=== PATIENT | female | born 1980 | race Caucasian/White ===

== ENCOUNTER 2017-01-05 15:04 | Emergency (ER) | payer BC ==
[~2017-01-05] VITALS: Ht 167.6 cm; Wt 56.1 kg
[~2017-01-05 15:04] MED LIST: CLIN300C2 PO
[2017-01-05 15:10] VITALS: BP 134/64; PULSE 109; TEMP 37.1; O2SAT 98; Ht 167.6 cm; Wt 56.1 kg
--- NOTE | 2017-01-05 16:00 | DIAGNOSTIC IMAGING REPORT ---
LEFT SHOULDER MIN 2 VIEWS ROUTINE CLINICAL HISTORY: Left shoulder pain following fall. COMPARISON: None FINDINGS: There is fusion of the left glenohumeral joint. There is AC joint arthrosis with subacromial spurring. No acute fracture is identified. Alignment of the left acromioclavicular joint appears anatomic. Several small sclerotic juxtacortical foci projecting of the proximal shaft of the left humerus have a benign imaging appearance. IMPRESSION: 1. No acute fracture. 2. Left glenohumeral joint fusion. 3. Small juxtacortical sclerotic foci within the proximal shaft of the left humerus. These are nonspecific but have benign imaging characteristics and could be correlated with prior imaging studies, if available. Electronically signed by: Gregory Brannon M.D. 01/05/2017 3:59 PM Dictated Date/Time: 01/05/2017 3:56 PM
--- NOTE | 2017-01-05 16:05 | DIAGNOSTIC IMAGING REPORT ---
LEFT HUMERUS MIN 2 VIEWS ROUTINE CLINICAL HISTORY: L shoulder and mid humerus pain COMPARISON: None FINDINGS: No acute fracture of the left humerus is identified. A left glenohumeral joint fusion is noted. Alignment of the left elbow is anatomic and there is no evidence for a left elbow joint effusion. IMPRESSION: 1. No acute fracture of the left humerus. 2. Status post left glenohumeral joint fusion. Electronically signed by: Gregory Brannon M.D. 01/05/2017 4:04 PM Dictated Date/Time: 01/05/2017 4:03 PM
[2017-01-05] MEDS ORDERED: HYDR-5688 PO (16:15)
--- NOTE | 2017-01-05 23:44 | EMERGENCY ROOM VISIT NOTE ---
ED Visit Note First contact with patient: 15:13 Chief Complaint: Left shoulder pain. History of Present Illness: Ms. Renee is a 36 or old white female who ambulates into the ED complaining of posterior left shoulder pain behind humeral head. Historically patient reports she has had a different surgeries on her left shoulder with her last surgery in 2012 which was a glenohumeral fusion. Patient reports yesterday approximately 16 hours ago she was playing with her child and fell and landed on the left shoulder. She reports she immediately had pain over the posterior aspect of the humeral head. Since that time her pain has been constant. She describes it at rest as a throbbing and sharp with movement. She rates her maximum discomfort 9/10. All attempts at moving the shoulder increases her discomfort. She has not identified any alleviating factors except rest. She has been using ibuprofen and has had no relief of her discomfort. She denies any associated symptoms including strike her head at the time of the fall, signs of head injury, cervical or thoracic back pain, elbow pain, forearm pain, wrist pain, arm weakness/numbness/tingling, nausea/ vomiting. Review of Systems: As noted above in history of present illness. 8 body systems were reviewed and found to be negative as noted above. Past Medical History: As previously noted, pneumonia, unspecified ulcer. Current Medications: Patient denies. Allergies to Medications: Trazodone, penicillin and erythromycin. Social History: Patient is currently employed; she feels safe in her home environment; she admits to tobacco and alcohol use. Physical Examination: Vital Signs: Date Time Temp Pulse Resp B/P (MAP) Pulse Ox O2 Delivery O2 Flow Rate FiO2 01/05/17 15:10 37.1 109 18 134/64 98 Room Air GENERAL: 36-year-old female in mild to moderate distress due to pain, nontoxic- appearing, afebrile and hemodynamically stable. NEUROLOGICAL: Awake, alert and oriented to person, place and time. Answering questions appropriately and following commands. Normal gait. Good hand eye coordination. SKIN: Warm, dry and pink. No soft tissue eruptions or trauma noted. Should be noted patient has multiple scars from self cutting all of which all altered appearance and healed. HEENT: Atraumatic and normocephalic. BACK: No tenderness over the bony cervical and thoracic spine. Full range of motion of the cervical spine. LEFT UPPER EXTREMITY: No gross bony deformity. Patient does have multiple surgical scars to the left shoulder as well as significant amount of atrophy of the surrounding musculature. Able to elicit mild tenderness over the posterior head and the superior aspect of the scapula predominately over the supraspinatus muscle. Additionally I palpated tenderness over the mid humerus without bony deformity, crepitus, swelling or ecchymosis. I do not appreciate any bony deformity or crepitus. Because of her previous surgery sure he has limited range of motion and now she'll he has a few degrees of abduction, extension and flexion. With her shoulder stabilize she has full range of motion and muscle strength in flexion and extension of the elbow, pronation and supination of forearm and flexion, extension and radial and ulnar deviation of the wrist. Distal pulses are intact. Capillary refill was brisk. She had decreased sensation over the posterior aspect of her hand which she reports occurred during surgery and is not new or worsened. ED Course: Patient is assessed as noted above. Patient's medication list was reviewed. Patient was offered pain medication and refused. Left Shoulder X-Rays: Was read by myself and the radiologist showing no acute fractures or dislocations. Left glenohumeral joint effusion. Small juxtacortical carotic focus within the proximal shaft of the humerus that is nonspecific. Left Humeral X-Rays: Were read by myself and the radiologist and shows no acute fractures. Patient was placed in a sling. Patient was educated about today's findings and instructed on her treatment plan ; she verbalized understanding and agreement with this plan. Clinical Impression: Shoulder pain. Status post fall. Disposition: Patient discharged home in stable condition; prior to departure she was reassessed and subjectively reported she was feeling better and rated her discomfort 3/10. Plan: Comfort measures were discussed including rest, ice, sling use and a sliding pain medication scale of ibuprofen, acetaminophen and [place]. She was given appropriate precautions with narcotic use tenderness was checked on state database and no red flags were noted. Patient was encouraged to contact her orthopedic surgeon and request follow-up care and treatment. Patient was encouraged return ED for worsening pain, uncontrolled swelling, arm weakness/numbness/tingling or any new/concerning symptoms.
== END 2017-01-05 16:21 | disposition home or self-care (01) ==
LOC: C.EDB 15:05 → C.EDD 16:21
DX: M25.512 Pain in left shoulder (principal); W19.XXXA Unspecified fall, initial encounter; F17.200 Nicotine dependence, unspecified, uncomplicated

== ENCOUNTER 2017-08-18 14:38 | Emergency (ER) | payer SELFPAY ==
[~2017-08-18] VITALS: Ht 167.6 cm; Wt 47.9 kg
[2017-08-18 14:41] VITALS: TEMP 36.7; Ht 167.6 cm; Wt 47.9 kg
[2017-08-18] MEDS ORDERED: ALBUT/IPRATROP 3MG/0.5MG NEB 3 ML VIAL INH STA (16:25)
[2017-08-18] MEDS ORDERED: KETOROLAC TROMETHAMINE 30 MG/ML VIAL IV STA (16:25)
[2017-08-18] MEDS ORDERED: SODIUM CHLORIDE 0.9% 1000ML 1,000 ML IV STA (16:25)
[2017-08-18 16:45] LABS: BASO % 0.3 %; BASO ABS # 0.04 K/uL (0-0.2); EOS % 0.6 %; EOS ABS # 0.07 K/uL (0-0.5); HEMOGLOBIN 13.7 g/dL (12.0-16.0); IG# 0.04 K/uL (0.00-0.02); LYMPH % 25.9 %; LYMPH ABS # 3.09 K/uL (1.2-3.4); MEAN CELL VOLUME 88.5 fL (80-100); MEAN CORPUSCULAR HEMOGLOBIN 30.3 pg (25-34); MEAN CORPUSCULAR HGB CONC 34.3 g/dl (32-36); MEAN PLATELET VOLUME 8.2 fL (7.4-10.4); MONO % 6.5 %; MONO ABS # 0.78 K/uL (0.11-0.59); NEUT % 66.4 %; NEUT ABS # 7.93 K/uL (1.4-6.5); PLATELET COUNT 339 K/uL (130-400); RED CELL DISTRIBUTION WIDTH CV 12.8 % (11.5-14.5); RED CELL DISTRIBUTION WIDTH SD 40.7 fL (36.4-46.3); WHITE BLOOD COUNT 11.95 K/uL (4.8-10.8)
[2017-08-18] MEDS ORDERED: ACET-1693 PO (17:02)
[2017-08-18] MEDS ORDERED: GUAI1TAB20 PO (17:02)
[2017-08-18] MEDS ORDERED: IBUP-103 PO (17:02)
[2017-08-18 17:13] LABS: ALBUMIN 3.6 gm/dl (3.4-5.0); ALT/SGPT 19 U/L (12-78); BLOOD UREA NITROGEN 11 mg/dl (7-18); CALCIUM 8.7 mg/dl (8.5-10.1); CARBON DIOXIDE 27 mmol/L (21-32); CREATININE 0.74 mg/dl (0.60-1.20); GLUCOSE 89 mg/dl (70-99); LIPASE 266 U/L (73-393); POTASSIUM 3.5 mmol/L (3.5-5.1); SODIUM 136 mmol/L (136-145)
[2017-08-18 17:19] LABS: ALKALINE PHOSPHATASE 71 U/L (45-117); AST/SGOT 13 U/L (15-37); CKMB < 0.5 ng/ml (0.5-3.6); TOTAL PROTEIN 7.2 gm/dl (6.4-8.2)
--- NOTE | 2017-08-18 17:19 | DIAGNOSTIC IMAGING REPORT ---
FACIAL BONES-MXILLOFAC WITHOUT CLINICAL HISTORY: 37 years-old Female presenting with elbow to face; unable to breath thru L nare. TECHNIQUE: Multidetector CT of the face was performed without the use of intravenous contrast. IV contrast: None. A dose lowering technique was used consistent with the principles of ALARA (as low as reasonably achievable). COMPARISON: None. CT DOSE (mGy.cm): The estimated cumulative dose is 638.94 mGy.cm. FINDINGS: [facility] [employer] [facility] topogram: Unremarkable. Multiple dental caries noted as marked on the images. The maxillary teeth are absent. No periapical lucencies. Extensive mucosal thickening in the maxillary sinuses, left greater than right. The bony nasal septum is mildly deviated to the right. Discontinuity of the bony nasal septum (series 3 image 281) with bony spurring morphology. The nasal cavity is otherwise patent. The nasopharynx is narrowed by adenoidal lymphoid tissue hypertrophy. Similarly, the oropharynx is narrowed by the tonsillar and adenoidal lymphoid tissue hypertrophy. Orbits normal. Superficial soft tissues of the face normal. Upper cervical spine normal. Parapharyngeal fat planes nondisplaced. No prevertebral edema or retropharyngeal fluid allowing for noncontrast technique. No upper cervical lymphadenopathy. IMPRESSION: 1. Discontinuity of the bony nasal septum with mild deviation to the right results in narrowing of the right nasal cavity. It is unclear if this represents an acute or chronic fracture or developmental variant. 2. Significant adenoidal and tonsillar lymphoid tissue hypertrophy resulting in narrowing of the nasopharynx and oropharynx. This is likely reactive. The nasal cavity is clear. 3. Multiple dental caries. Electronically signed by: Carlos A Gomes M.D. 08/18/2017 5:18 PM Dictated Date/Time: 08/18/2017 5:11 PM
--- NOTE | 2017-08-18 17:30 | DIAGNOSTIC IMAGING REPORT ---
CHEST 2 VIEWS ROUTINE CLINICAL HISTORY: Atypical chest pain, shortness of breath. Bronchitis. COMPARISON STUDY: Conventional radiographic evaluation the left shoulder dated 01/05/2017 FINDINGS: The cardiac and mediastinal contours are normal. There is no focal pulmonary consolidation. There is no failure. An equivocal 6 mm nodule at the left lung base likely represents a vascular summation. There is a left glenohumeral joint fusion. There are no pleural effusions.[ IMPRESSION: 1. 6 mm opacity at the left lung base likely representing a summation 2. No evidence of focal pulmonary consolidation 3. Left glenohumeral joint fusion Electronically signed by: Ryan Marquez M.D. 08/18/2017 5:29 PM Dictated Date/Time: 08/18/2017 5:24 PM
[2017-08-18] MEDS ORDERED: BENZ100C18 PO (17:48)
[2017-08-18] MEDS ORDERED: PRED20TA2 PO (17:48)
[2017-08-18] MEDS ORDERED: VNTHFA/IN INH (17:48)
[2017-08-18 17:56] VITALS: BP 113/64; PULSE 74; O2SAT 99
--- NOTE | 2017-08-19 06:06 | EMERGENCY ROOM VISIT NOTE ---
ED Visit Note First contact with patient: 16:11 Chief Complaint: Chest pain and shortness of breath. History of Present Illness: Ms. Renee is a 37 year-old white female who ambulates into the ED complaining of chest pain and shortness of breath. Historically patient reports history of asthma and bronchitis. Patient reports she has been having ongoing systems for approximately the last 3 -4 weeks. The symptoms have included a nonproductive cough, sinus congestion, fever and shortness of breath. She was seen at a local urgent care center when the started approximately 3 weeks ago and was diagnosed with bronchitis without testing. She was given an antibiotic, steroids and an albuterol inhaler. She reports after about a week she was feeling better but then reports approximately 1.5 weeks ago her symptoms returned and were much more severe. Additionally patient reports that a day or 2 before her return of symptoms she was accidentally elbowed in the face and since that time she feels like she is not able to breathe through the left nostril. Patient currently reports currently she has a constant nonproductive cough. She reports her cough is prominent in the morning after waking. This is associated with anterior chest wall pain and intermittent shortness of breath and fevers. She describes her pain as a burning sensation. She rates her discomfort 5/10. Her pain is nonradiating. Her pain worsens with cough, palpitations and deep inspiration. Her pain is improved when she is not coughing. She has not taken any medication for her symptoms since she finished her steroids and her inhaler. Associated with all her symptoms she reports intermittently she has been having fevers of 100-101F intermittently throughout the last 3 weeks, she has intermittently been feeling short of breath when she is coughing, she intermittently perceives palpitations when she is coughing, sinus congestion with mild nasal drainage. She chills, sweats, skin eruptions, skin color changes, wheezing, hemoptysis, orthopnea, dependent edema, previous clots, claudication, cramping, recent surgery/inactivity/extended travel, tobacco and estrogen use, abdominal pain, nausea, vomiting, back/flank pain. Review of Systems: As noted above in history of present illness. All body systems were reviewed and found to be negative as noted above. Past Medical History: As previously noted and status post unspecified shoulder fusion, appendectomy, ovarian cyst removal and wisdom teeth extraction. Current Medications: Patient denies. Allergies to Medications: Amoxicillin, erythromycin and trazodone. Social History: Patient is currently employed; she feels safe in her home environment; she denies tobacco use and admits to social alcohol use. Physical Examination: Vital Signs: Date Time Temp Pulse Resp B/P (MAP) Pulse Ox O2 Delivery O2 Flow Rate FiO2 08/18/17 17:56 74 18 113/64 99 08/18/17 16:43 84 18 113/51 100 Room Air 08/18/17 14:41 36.7 77 18 128/68 100 Room Air GENERAL: 37-year-old female in mild distress due to pain, nontoxic-appearing, afebrile and hemodynamically stable. NEUROLOGICAL: Awake, alert and oriented to person, place and time. Answering questions appropriately and following commands. Normal gait. Good hand eye coordination. SKIN: Warm, dry and pink. No soft tissue eruptions or trauma noted. HEENT: Atraumatic and normocephalic. No erythema or tenderness over the frontal or maxillary sinuses. Mild tenderness over the left lateral aspect of the nose without bony deformity, bony crepitus, swelling or ecchymosis. There is slight decrease in air movement through the left nostril. The nostril is visually patent and no signs of trauma were noted. PERRLA. Sclera white and conjunctiva pink without drainage. No nasal drainage but audible congestion. Oral cavity moist and pink. Airway patent. Pharynx is nonerythematous or edematous. Speech normal and clear. No lymphadenopathy. Trachea midline. No jugular venous distention. BACK: No tenderness over the bony spine. No nuchal rigidity or meningismus. Full range of motion of the cervical spine. No CVA tenderness. THORAX: Lungs sounds are clear to auscultation but decreased bilaterally with prominence in the right sided lung fisher. Equal bilaterally with symmetrical chest wall. No wheezing, rales or rhonchi. Mild to moderate tenderness over the anterior chest wall without bony deformity, bony crepitus, swelling, ecchymosis or subcutaneous air. No increase in respiratory effort or rate. HEART: Regular rate and rhythm. No gallops, rubs or murmurs are appreciated. No lifts, heaves or thrills. PMI is not displaced. ABDOMEN: Flat, soft and nontender. Positive bowel sounds in all quadrants. No guarding, rigidity or organomegaly. EXTREMITIES: Moves all extremities well on command and with purpose. All distal neurovascular statuses are intact and equal bilaterally. No dependent edema or calf tenderness/cords. ED Course: Patient is assessed as noted above. Patient's medication list was reviewed. Laboratory Testing: Test 08/18/17 16:33 08/18/17 16:39 Range/Units White Blood Count 11.95 4.8-10.8 K/uL Red Blood Count 4.52 4.2-5.4 M/uL Hemoglobin 13.7 12.0-16.0 g/dL Hematocrit 40.0 37-47 % Mean Corpuscular Volume 88.5 80-100 fL Mean Corpuscular Hemoglobin 30.3 25-34 pg Mean Corpuscular Hemoglobin Concent 34.3 32-36 g/dl Platelet Count 339 130-400 K/uL Mean Platelet Volume 8.2 7.4-10.4 fL Neutrophils (%) (Auto) 66.4 % Lymphocytes (%) (Auto) 25.9 % Monocytes (%) (Auto) 6.5 % Eosinophils (%) (Auto) 0.6 % Basophils (%) (Auto) 0.3 % Neutrophils # (Auto) 7.93 1.4-6.5 K/uL Lymphocytes # (Auto) 3.09 1.2-3.4 K/uL Monocytes # (Auto) 0.78 0.11-0.59 K/uL Eosinophils # (Auto) 0.07 0-0.5 K/uL Basophils # (Auto) 0.04 0-0.2 K/uL RDW Standard Deviation 40.7 36.4-46.3 fL RDW Coefficient of Variation 12.8 11.5-14.5 % Immature Granulocyte % (Auto) 0.3 % Immature Granulocyte # (Auto) 0.04 0.00-0.02 K/uL Sodium Level 136 136-145 mmol/L Potassium Level 3.5 3.5-5.1 mmol/L Chloride Level 104 98-107 mmol/L Carbon Dioxide Level 27 21-32 mmol/L Anion Gap 5.0 3-11 mmol/L Blood Urea Nitrogen 11 7-18 mg/dl Creatinine 0.74 0.60-1.20 mg/dl Est Creatinine Clear Calc Drug Dose 78.7 ml/min Estimated GFR () 120.0 Estimated GFR (Non- 103.5 BUN/Creatinine Ratio 14.6 10-20 Random Glucose 89 70-99 mg/dl Calcium Level 8.7 8.5-10.1 mg/dl Total Bilirubin 0.4 0.2-1 mg/dl Direct Bilirubin 0.1 0-0.2 mg/dl Aspartate Amino Transf (AST/SGOT) 13 15-37 U/L Alanine Aminotransferase (ALT/SGPT) 19 12-78 U/L Alkaline Phosphatase 71 45-117 U/L Total Creatine Kinase 49 26-192 U/L Creatine Kinase MB < 0.5 0.5-3.6 ng/ml Creatine Kinase MB Ratio 0-3.0 Total Protein 7.2 6.4-8.2 gm/dl Albumin 3.6 3.4-5.0 gm/dl Lipase 266 73-393 U/L Bedside D-Dimer 233 0-450 ng/mlFEU Bedside Troponin I < 0.030 0-0.045 ng/ml Chest X-Rays: Was read by myself and the radiologist showing no infiltrates, effusions or pneumothorax. Normal heart silhouette and bony anatomy. Radiologist does note a 6 mm opacity in the left lung base likely representing summation and a left glenohumeral joint effusion. Facial CT: Was reviewed by myself and read by the radiologist showing discontinuity of the nasal septum with mild deviation to the right resulting in narrowing of the nasal cavity; radiologist is unclear if this represented an acute or chronic fracture or developmental variant, and adenoidal and tonsillar lymphoid tissue hypertrophy resulting in narrowing of the nasopharynx and oropharynx. EKG: Was read by myself and shows normal sinus rhythm with a ventricular rate of 72 bpm. Normal axis, intervals and complexes. No acute ST changes indicating ischemia, injury or infarction. No previous on records were found for comparison. Patient was hydrated with normal saline and she was given an albuterol/Atrovent nebulizer breathing treatment and 30 mg of Toradol IV for her symptoms. Patient was reassessed multiple times during her stay in the emergency department after her breathing treatment her lungs remain clear to auscultation with improved air movement in all fisher. Patient was educated about today's findings and instructed on her treatment plan ; she verbalized understanding and agreement with this plan. Clinical Impression: Acute bronchitis. Nasal deviation. Decision-Making: Initially my differential diagnosis for her cough I considered pneumonia, pulmonary embolism, pneumothorax, pneumonia, bronchitis and for her nose I considered nasal fracture, facial fracture, sinus fracture, sinusitis and other causes. Disposition: Patient discharged home in stable condition accompanied by female friend; prior to departure she was reassessed and subjectively reported she was pain-free and was feeling much better; she denied any shortness of breath. Plan: Patient was encouraged alternate ibuprofen and acetaminophen every 3 hours as needed for pain or fevers. Patient was prescribed Tessalon Perles 100 mg every 8 hours as needed for cough. Patient was prescribed prednisone 60 mg once a day for 5 days. Patient was prescribed an additional albuterol inhaler encouraged to use 2 puffs of the inhaler with spacer every 6 hours for 5 days and as needed for shortness of breath/wheezing or significant coughing episodes. Patient was encouraged to increase clear fluids. Patient was encouraged to follow-up with her PCP for recheck in 3-4 days. Patient was encouraged return the ED for worsening cough, worsening pain, worsening fevers, coughing up blood, uncontrolled shortness of breath/wheezing or any new/concerning symptoms.
== END 2017-08-18 17:58 | disposition home or self-care (01) ==
LOC: C.EDB 14:40
DX: J20.9 Acute bronchitis, unspecified (principal); J34.2 Deviated nasal septum; R07.89 Other chest pain; R59.0 Localized enlarged lymph nodes; M25.412 Effusion, left shoulder; Z98.1 Arthrodesis status

== ENCOUNTER 2020-07-19 18:37 | Observation (INO) ==
--- NOTE | 2020-07-19 20:25 | Emergency Department Note ---
Impression & Plan Lumbar radiculopathy, Sciatica ED Provider Note INFORMANT: Patient ED PROVIDER(S): Adelso John MD CHIEF COMPLAINT: Back pain PLAN: Disposition: Admitted Condition: Good Outpatient prescription management: none Referral: None MEDICAL DECISION MAKING: Patient presented with worsening back symptoms. Record review indicated a significant nerve root impingement. She unfortunately did not do well with the prednisone and oxycodone despite some help on the day after her first ER visit. She had an unremarkable CBC and chemistry panel for subtle leukocytosis which is likely related to the steroid. Urinalysis was unremarkable. She was given Decadron and Dilaudid. I did consult with Dr. Bains of orthopedic spine. He recommended hospitalist admission for pain control. He will consult on the patient in the morning. He is unsure if she will need injections or operative procedure. Patient was in agreement. Triage Nursing notes reviewed and agree them. Prior medical records reviewed 1. At L4-L5, discogenic degeneration and spondylitic spurring is noted along with a right paracentral/right lateral recess disc protrusion which abuts and posteriorly displaces the right L5 nerve root resulting in moderate right lateral recess narrowing. Mild discogenic degeneration at L3-L4 and L5-S1 as above. No significant central canal or foraminal narrowing. Vital Signs: reviewed and remarkable for no significant abnormalities Differential diagnosis: Musculoskeletal, disc herniation, fracture, metastatic disease, cord compression, discitis, sciatica, cauda equina, infection, aortic disease, renal colic, gastrointestinal, as well as other pathologies. Diagnostics interpreted by me: Cardiac Monitoring: Cardiac monitoring ordered by me: The patient was placed on continuous cardiac monitoring and observed. It revealed a normal sinus rhythm at 80 beats per minute without ectopy or evidence of dysrhythmia. Imaging studies: Deferred Consultation(s): Orthopedic spine, Dr. Bains Hospitalist service, Dr. Schofield HPI: The patient is a 39 year old female who presents to the Emergency Room with complaints of low back pain. This started a few years ago but worsened over the last few weeks and is now severe. Was here 5 days ago for similar issues and had an MRI which revealed nerve root compression. The patient also notes the following associated symptoms, difficulty walking, hip pains, numbness, weakness,The patient has been prescribed prednisone, oxycodone for relieving factors. Current pain is rated as 8/10. Pt denies LOC, headache, fevers, chills, diaphoresis, visual changes, neck pain, chest pain, breathing difficulties, nausea, vomiting, abdominal pain, melena, hematochezia, urinary symptoms, lymphadenopathy, rash, or other complaints. ROS: See above HPI for pertinent positives & negatives. A total of 10 systems reviewed and were otherwise negative. PAST MEDICAL HISTORY:See Below , DDD PAST SURGICAL HISTORY:See Below FAMILY HISTORY:See Below SOCIAL HISTORY:See Below, prior ETOH HOME MEDICATIONS:See Below ALLERGIES:See Below VITALS:See Below PHYSICAL EXAMINATION: GENERAL: Awake, alert, uncomfortable-appearing, in no distress HENT: Normocephalic, atraumatic. Oropharynx unremarkable. EYES: Normal conjunctiva. Sclera non-icteric. NECK: Inspection normal. Non-tender. Supple. No nuchal rigidity. FROM. No masses. RESPIRATORY: Clear to auscultation. No wheezes. No rales. Normal respiratory e ffort. CARDIAC: Normal rate. Normal rhythm. No murmurs. No rubs. Extremities warm and well perfused. Pulses equal. No JVD. GI: Soft, non-distended. No tenderness to palpation. No rebound or guarding. No masses. RECTAL: Deferred. MUSCULOSKELETAL: Atraumatic. Chest examination reveals no tenderness. The back is symmetrical on inspection without obvious abnormality. Lumbar TTP. There is no CVA tenderness to palpation. No joint edema. LOWER EXTREMITIES: Calves are equal size bilaterally and non-tender. No edema. No discoloration. NEURO: Normal sensorium. No saddle anesthesia. Tingling sensation noted to the sole of the left foot near the first MTP joint. Positive right straight leg raise. SKIN: No rash or jaundice noted. Adelso John MD Past Med/Surg History Medical History No significant active problems Social History Smoking Status: Never smoker Preferred Language: Danish Communication Ability: Effective Envelope Machine Adjuster Required: No Beliefs That Will Affect Care: None Current Living Situation: Significant Other Other Information That Helps Us Care for You: No Feels Safe at Home: Yes Safety Concerns: Feels Safe At This Time Assistive Devices: None Assistive Devices Comment: Walker; only with current situation Allergies Allergies Allergy/AdvReac Type Severity Reaction Status Date / Time trazodone Allergy Intermediate Hypotension Verified 07/19/20 21:31 amoxicillin Allergy Unknown Unknown Verified 07/19/20 21:31 Penicillins Allergy Unknown Nausea Verified 07/19/20 21:31 ERYTHROMYCIN Allergy Unknown Unknown Uncoded 07/19/20 21:31 Home Meds Home Medications Medication Instructions Recorded Confirmed norgestimate-ethinyl estradiol 1 tab PO DAILY 07/19/20 07/19/20 [Tri-Sprintec (28)] oxycodone 5 mg PO Q6H PRN 07/19/20 07/19/20 prednisone 10 mg PO DIRECTED 07/19/20 07/19/20 Results & Data (ED) Vital Signs Vital Signs - 24 hr 07/19/20 19:04 07/19/20 20:17 07/19/20 21:00 Temperature 36.7 C Temperature Source Temporal Artery Scan Pulse Rate 86 Pulse Rate [Right Finger] 73 75 Respiratory Rate 16 22 15 Respiratory Effort / Characteristics Non-Labored Spontaneous Respiratory Depth Normal Normal Respiratory Pattern Regular Blood Pressure 129/74 Blood Pressure [Right Arm] 114/63 128/74 Blood Pressure Mean 92 Blood Pressure Mean [Right Arm] 80 92 Blood Pressure Position Sitting Blood Pressure Position [Right Arm] Lying Pulse Oximetry 100 100 96 Oxygen Delivery Method Room Air Room Air Room Air Sepsis Recent Fever Within 48 Hours No Sepsis New/Unexplained Change in Mental Status No Sepsis Action Taken by Nursing No Action Required 07/19/20 21:50 Temperature Temperature Source Pulse Rate Pulse Rate [Right Finger] 66 Respiratory Rate 16 Respiratory Effort / Characteristics Respiratory Depth Respiratory Pattern Blood Pressure Blood Pressure [Right Arm] Blood Pressure Mean Blood Pressure Mean [Right Arm] Blood Pressure Position Blood Pressure Position [Right Arm] Pulse Oximetry 100 Oxygen Delivery Method Room Air Sepsis Recent Fever Within 48 Hours Sepsis New/Unexplained Change in Mental Status Sepsis Action Taken by Nursing Laboratory Data Result diagrams: 07/19/20 20:41 07/19/20 20:41 Lab Results 07/19/20 07/19/20 07/19/20 Range/Units 20:24 20:41 20:41 WBC 11.78 H (4.8-10.8) K/uL RBC 4.72 (4.2-5.4) M/uL Hgb 14.9 (12.0-16.0) g/dL Hct 40.9 (37-47) % MCV 86.7 (80-100) fL MCH 31.6 (25-34) pg MCHC 36.4 H (32-36) g/dL RDW Std Deviation 38.5 (36.4-46.3) fL RDW Coeff of Koki 12.1 (11.5-14.5) % Plt Count 419 H (130-400) K/uL MPV 8.7 (7.4-10.4) fL Immature Gran % (Auto) 0.3 % Neut % (Auto) 75.4 % Lymph % (Auto) 18.8 % [place] % (Auto) 5.3 % Eos % (Auto) 0.0 % Baso % (Auto) 0.2 % Neut # (Auto) 8.88 H (1.4-6.5) K/uL Lymph # (Auto) 2.22 (1.2-3.4) K/uL [place] # (Auto) 0.63 H (0.11-0.59) K/uL Eos # (Auto) 0.00 (0-0.5) K/uL Baso # (Auto) 0.02 (0-0.2) K/uL Immature Gran # (Auto) 0.03 H (0.00-0.02) K/uL Sodium 137 (136-145) mmol/L Potassium 3.4 L (3.5-5.1) mmol/L Chloride 108 H (98-107) mmol/L Carbon Dioxide 22 (21-32) mmol/L Anion Gap 7.0 (3-11) BUN 13 (7-18) mg/dl Creatinine 0.85 (0.6-1.2) mg/dl Est Cr Clr Drug Dosing 72.7 ml/min Est GFR ( Amer) 100.0 Est GFR (Non-Af Amer) 86.3 BUN/Creatinine Ratio 15.7 (10-20) Glucose 95 (70-99) mg/dl Calcium 9.5 (8.5-10.1) mg/dl Magnesium 2.6 H (1.8-2.4) mg/dl Total Bilirubin 0.6 (0.2-1) mg/dl AST 7 L (15-37) U/L ALT 29 (12-78) U/L Alkaline Phosphatase 49 (45-117) U/L Total Protein 7.8 (6.4-8.2) gm/dl Albumin 4.2 (3.4-5.0) gm/dl Globulin 3.6 (2.5-4.0) gm/dl Albumin/Globulin Ratio 1.2 (0.9-2) Urine Color Yellow Urine Appearance Clear (Clear) Urine pH 7.0 (4.5-7.5) Ur Specific [place] 1.015 (1.000-1.030) Urine Protein Negative (Negative) Urine Glucose (UA) Negative (Negative) Urine Ketones Negative (Negative) Urine Blood Negative (Negative) Urine Nitrite Negative (Negative) Urine Bilirubin Negative (Negative) Urine Urobilinogen Negative (Negative) Ur Leukocyte Esterase Negative (Negative) Administered Medications Acetaminophen (Acetaminophen 500 Mg Tab) 1,000 mg PO Q8H SHRUTHI Stop: 08/19/20 00:24 Last Admin: 07/20/20 01:25 Dose: 1,000 mg Documented by: [id number] Morphine Sulfate (Morphine Sulfate 2 Mg/Ml Carp) 2 mg IV Q4H PRN PRN Reason: Pain Stop: 08/03/20 01:19 Last Admin: 07/20/20 01:32 Dose: 2 mg Documented by: [id number] Discontinued Medications Dexamethasone (Dexamethasone Sod Inj 10 Mg/Ml Vial) 10 mg IV NOW ONE Stop: 07/19/20 20:41 Last Admin: 07/19/20 20:48 Dose: 10 mg Documented by: [id number] Hydromorphone HCl (Hydromorphone Inj 0.5 Mg/0.5 Ml Syr) 0.5 mg IV Q15M PRN PRN Reason: Pain Stop: 08/02/20 20:39 Last Admin: 07/19/20 21:40 Dose: 0.5 mg Documented by: [id number] Admin: 07/19/20 20:48 Dose: 0.5 mg Documented by: [id number] Potassium Chloride (Potassium Chloride Crtab 20 Meq Tabcr) 40 meq PO NOW STA Stop: 07/20/20 00:26 Last Admin: 07/20/20 01:26 Dose: 40 meq Documented by: [id number] Discharge Plan Visit Data Chief Complaint: Back Injury/Pain Stated Complaint: BACK PAIN, BILAT LEG NUMBNESS ED Provider: Adelso John Discharge Problem: Lumbar radiculopathy, Sciatica Patient Disposition: Admitted As Inpatient Discharge Instructions Interventions: ED Discharge Assessment Last Done: 07/19/20 23:35
[2020-07-19] MEDS ORDERED: DEXAMETHASONE SOD INJ 10 MG/ML VIAL IV ONE (20:40)
[2020-07-19] MEDS: HYDROmorphone INJ 0.5 MG/0.5 ML SYR IV PRN ×2 (20:48→21:40)
[2020-07-19 20:51] LABS: Appearance Urine Clear (Clear); Bilirubin Urine Negative (Negative); Blood Urine Negative (Negative); Color Urine Yellow; Glucose Urine UA Negative (Negative); Ketones Urine Negative (Negative); Leukocyte Esterase Urine Negative (Negative); Nitrite Urine Negative (Negative); Protein Urine Negative (Negative); Specific Gravity Urine 1.015 (1.000-1.030); Urobilinogen Urine Negative (Negative)
[2020-07-19 20:58] LABS: Basophils # (auto) 0.02 K/uL (0-0.2); Basophils % (auto) 0.2 %; Hematocrit (blood only) 40.9 % (37-47); Hemoglobin 14.9 g/dL (12.0-16.0); Immature Granulocytes # (auto) 0.03 K/uL (0.00-0.02); Immature Granulocytes % (auto) 0.3 %; Lymphocytes # (auto) 2.22 K/uL (1.2-3.4); Lymphocytes % (auto) 18.8 %; Mean Corpuscular Hemoglobin 31.6 pg (25-34); Mean Corpuscular Hgb Conc 36.4 g/dL (32-36); Mean Corpuscular Volume 86.7 fL (80-100); Mean Platelet Volume 8.7 fL (7.4-10.4); Monocytes # (auto) 0.63 K/uL (0.11-0.59); Monocytes % (auto) 5.3 %; Neutrophils # (auto) 8.88 K/uL (1.4-6.5); Neutrophils % (auto) 75.4 %; Platelet Count 419 K/uL (130-400); RDW Coefficient of Variation 12.1 % (11.5-14.5); RDW Standard Deviation 38.5 fL (36.4-46.3); Red Blood Count 4.72 M/uL (4.2-5.4); White Blood Count 11.78 K/uL (4.8-10.8)
[2020-07-19 21:14] LABS: Albumin Level 4.2 gm/dl (3.4-5.0); BUN Creatinine Ratio 15.7 (10-20); Calcium 9.5 mg/dl (8.5-10.1); Creatinine Clr Calc Pharmacy 72.7 ml/min; Est GFR (Non-African American) 86.3; Potassium 3.4 mmol/L (3.5-5.1)
[2020-07-19 21:17] LABS: Albumin Globulin Ratio 1.2 (0.9-2); Bilirubin,Total 0.6 mg/dl (0.2-1); Globulin 3.6 gm/dl (2.5-4.0); Total Protein 7.8 gm/dl (6.4-8.2)
--- NOTE | 2020-07-19 22:22 | History & Physical Report ---
Date of Service July 19, 2020 Assessment & Plan (1) Lumbar radiculopathy: Lumbar pain with radiculopathy -Observation to medical -Pain control with Tylenol, Oxycodone, Morphine PRN -Toradol PRN -Dexamethasone 10mg IV given in ER -Heat -Ortho consultation appreciated -Will keep NPO for now in event of procedure in AM F/E/N - Heplock. K repleted, repeat labs in AM, NPO for now Ppx - Low risk for DVT Code - Full Dispo - Obs to medical History of Present Illness Chief Complaint: back pain Primary Care Provider: NO PCP 39yo female with no significant past medical history presenting with severe back pain, numbness and tingling on anterior thighs and down medial legs bilaterally. Difficulty with ambulation. Hip pain as well as low back pain and burning. No urinary or bowel complaints. No fever No trauma Seen in the ER on 07/14/20 - had MR which showed L4-L5 disc degeneration and spondylitic spurring with displacement of L5 nerve root. She was started on Oxycodone and Prednisone with mild improvement initially, however, worsening symptoms over the last day. Allergies Allergy/AdvReac Type Severity Reaction Status Date / Time trazodone Allergy Intermediate Hypotension Verified 07/19/20 21:31 amoxicillin Allergy Unknown Unknown Verified 07/19/20 21:31 Penicillins Allergy Unknown Nausea Verified 07/19/20 21:31 ERYTHROMYCIN Allergy Unknown Unknown Uncoded 07/19/20 21:31 Home Medications Medication Instructions Recorded Confirmed Type norgestimate-ethinyl estradiol 1 tab PO DAILY 07/19/20 07/19/20 History [Tri-Sprintec (28)] oxycodone 5 mg PO Q6H PRN 07/19/20 07/19/20 History prednisone 10 mg PO DIRECTED 07/19/20 07/19/20 History Past Med/Surg History Medical History (Updated 07/20/20 @ 02:08 by Adelso John MD) No significant active problems Surgical History (Updated 07/20/20 @ 03:17 by Claudia Schofield DO) History of shoulder surgery Family History (Updated 07/20/20 @ 03:17 by Claudia Schofield DO) Other Heart disease Social History Smoking Status: Never smoker Preferred Language: [place] Citizen Communication Ability: Effective Web Feeder Required: No Beliefs That Will Affect Care: None Current Living Situation: Significant Other Other Information That Helps Us Care for You: No Feels Safe at Home: Yes Safety Concerns: Feels Safe At This Time Assistive Devices: Walker Assistive Devices Comment: Walker; only with current situation Review of Systems Review of Systems: All systems reviewed & are unremarkable except as noted in HPI & below Physical Exam Physical Exam: General: patient uncomfortable, NAD, non-toxic in appearance, AA&O x 4 Skin: warm, dry, intact, no rashes or lesions HEENT: NC/AT, PERRL, EOMI, anicteric sclera, conjunctiva without injection, external ear normal to inspection and nontender, nares patent, moist mucus membranes, dentition intact, no oropharyngeal lesions, neck supple, trachea midline, no LAD, no thyromegaly, no JVD Heart: +S1/S2, regular, no m/r/g Lungs: equal air entry bilaterally, no rales/rhonchi/wheezes Abd: +BS, soft, NT/ND, no masses/organomegaly/ascites Ext: warm, 2+ pulses in UE/LE bilaterally, no clubbing/cyanosis or edema Neuro: nonfocal, patient AA&O x 4, speech intact, no facial droop, moving all extremities on command with equal strength 5/5, diminished sensation anterior thighs bilaterally and medial thighs and legs, reflexes intact Results & Data Results & Data ([facility]) Vital Signs (Past 12 Hours) Vital Signs Temp Pulse Pulse Resp BP BP Pulse Ox 07/19/20 21:50 66 16 100 07/19/20 21:00 75 15 128/74 96 07/19/20 20:17 73 22 114/63 100 07/19/20 19:04 36.7 C 86 16 129/74 100 Laboratory Results Lab Results 07/19/20 07/19/20 07/19/20 Range/Units 20:24 20:41 20:41 WBC 11.78 H (4.8-10.8) K/uL RBC 4.72 (4.2-5.4) M/uL Hgb 14.9 (12.0-16.0) g/dL Hct 40.9 (37-47) % MCV 86.7 (80-100) fL MCH 31.6 (25-34) pg MCHC 36.4 H (32-36) g/dL RDW Std Deviation 38.5 (36.4-46.3) fL RDW Coeff of Koki 12.1 (11.5-14.5) % Plt Count 419 H (130-400) K/uL MPV 8.7 (7.4-10.4) fL Immature Gran % (Auto) 0.3 % Neut % (Auto) 75.4 % Lymph % (Auto) 18.8 % [place] % (Auto) 5.3 % Eos % (Auto) 0.0 % Baso % (Auto) 0.2 % Neut # (Auto) 8.88 H (1.4-6.5) K/uL Lymph # (Auto) 2.22 (1.2-3.4) K/uL [place] # (Auto) 0.63 H (0.11-0.59) K/uL Eos # (Auto) 0.00 (0-0.5) K/uL Baso # (Auto) 0.02 (0-0.2) K/uL Immature Gran # (Auto) 0.03 H (0.00-0.02) K/uL Sodium 137 (136-145) mmol/L Potassium 3.4 L (3.5-5.1) mmol/L Chloride 108 H (98-107) mmol/L Carbon Dioxide 22 (21-32) mmol/L Anion Gap 7.0 (3-11) BUN 13 (7-18) mg/dl Creatinine 0.85 (0.6-1.2) mg/dl Est Cr Clr Drug Dosing 72.7 ml/min Est GFR ( Amer) 100.0 Est GFR (Non-Af Amer) 86.3 BUN/Creatinine Ratio 15.7 (10-20) Glucose 95 (70-99) mg/dl Calcium 9.5 (8.5-10.1) mg/dl Magnesium 2.6 H (1.8-2.4) mg/dl Total Bilirubin 0.6 (0.2-1) mg/dl AST 7 L (15-37) U/L ALT 29 (12-78) U/L Alkaline Phosphatase 49 (45-117) U/L Total Protein 7.8 (6.4-8.2) gm/dl Albumin 4.2 (3.4-5.0) gm/dl Globulin 3.6 (2.5-4.0) gm/dl Albumin/Globulin Ratio 1.2 (0.9-2) Urine Color Yellow Urine Appearance Clear (Clear) Urine pH 7.0 (4.5-7.5) Ur Specific [place] 1.015 (1.000-1.030) Urine Protein Negative (Negative) Urine Glucose (UA) Negative (Negative) Urine Ketones Negative (Negative) Urine Blood Negative (Negative) Urine Nitrite Negative (Negative) Urine Bilirubin Negative (Negative) Urine Urobilinogen Negative (Negative) Ur Leukocyte Esterase Negative (Negative) COVID-19 Eval Order SARS-CoV-2, RNA, NAAT (NEGATIVE) 07/19/20 07/19/20 Range/Units 22:31 22:31 WBC (4.8-10.8) K/uL RBC (4.2-5.4) M/uL Hgb (12.0-16.0) g/dL Hct (37-47) % MCV (80-100) fL MCH (25-34) pg MCHC (32-36) g/dL RDW Std Deviation (36.4-46.3) fL RDW Coeff of Koki (11.5-14.5) % Plt Count (130-400) K/uL MPV (7.4-10.4) fL Immature Gran % (Auto) % Neut % (Auto) % Lymph % (Auto) % [place] % (Auto) % Eos % (Auto) % Baso % (Auto) % Neut # (Auto) (1.4-6.5) K/uL Lymph # (Auto) (1.2-3.4) K/uL [place] # (Auto) (0.11-0.59) K/uL Eos # (Auto) (0-0.5) K/uL Baso # (Auto) (0-0.2) K/uL Immature Gran # (Auto) (0.00-0.02) K/uL Sodium (136-145) mmol/L Potassium (3.5-5.1) mmol/L Chloride (98-107) mmol/L Carbon Dioxide (21-32) mmol/L Anion Gap (3-11) BUN (7-18) mg/dl Creatinine (0.6-1.2) mg/dl Est Cr Clr Drug Dosing ml/min Est GFR ( Amer) Est GFR (Non-Af Amer) BUN/Creatinine Ratio (10-20) Glucose (70-99) mg/dl Calcium (8.5-10.1) mg/dl Magnesium (1.8-2.4) mg/dl Total Bilirubin (0.2-1) mg/dl AST (15-37) U/L ALT (12-78) U/L Alkaline Phosphatase (45-117) U/L Total Protein (6.4-8.2) gm/dl Albumin (3.4-5.0) gm/dl Globulin (2.5-4.0) gm/dl Albumin/Globulin Ratio (0.9-2) Urine Color Urine Appearance (Clear) Urine pH (4.5-7.5) Ur Specific [place] (1.000-1.030) Urine Protein (Negative) Urine Glucose (UA) (Negative) Urine Ketones (Negative) Urine Blood (Negative) Urine Nitrite (Negative) Urine Bilirubin (Negative) Urine Urobilinogen (Negative) Ur Leukocyte Esterase (Negative) COVID-19 Eval Order Covid19 [facility]Now [facility] SARS-CoV-2, RNA, NAAT NEGATIVE (NEGATIVE) Diagnostic Findings MR lumbar spine wo con FROM 07/14/20 CLINICAL HISTORY: 39 years-old Female with pain right sideand numbness left foot. Acute low back pain with bilateral hip pain and leg numbness COMPARISON: None. TECHNIQUE: Multiplanar, multi sequence MRI of the lumbar spine was performed without intravenous contrast. FINDINGS: No gross extraspinal abnormality identified on the jewelry finisher localizer images. No acute fracture, subluxation, bone marrow or soft tissue edema. Conus medullaris terminates at L1. Signal within the imaged thoracic spinal cord and cauda equina appears unremarkable. T12-L1: No central canal or neural foraminal stenosis. L1-L2: No central canal or neural foraminal stenosis. L2-L3: No central canal or neural foraminal stenosis. L3-L4: Small posterior annular disc bulge flattens the ventral thecal sac. No central canal or neural foraminal stenosis. L4-L5: Mild intervertebral disc space narrowing with disc desiccation. Mild spondylitic spurring with small circumferential annular disc bulge. Annular fissure with right paracentral/right lateral recess disc protrusion which measures 1.2 x 0.5 cm in transverse and AP dimensions on image 21 series 7. This results in abutment with posterior displacement of the right L5 nerve root. There is moderate narrowing of the right lateral recess. Central canal and neuroforamina are patent. L5-S1: Mild intervertebral disc space narrowing with assess rotation, spondylitic spurring and circumferential annular disc bulge. There is no central canal or neuroforaminal stenosis. IMPRESSION: 1. At L4-L5, discogenic degeneration and spondylitic spurring is noted along with a right paracentral/right lateral recess disc protrusion which abuts and posteriorly displaces the right L5 nerve root resulting in moderate right lateral recess narrowing. 2. Mild discogenic degeneration at L3-L4 and L5-S1 as above. 3. No significant central canal or foraminal narrowing. ACT 112: Negative or not required by law. The above report was generated using voice recognition software. It may contain grammatical, syntax or spelling errors. Electronically signed by: Orestes Barnard M.D. 07/14/2020 5:44 PM Dictated: 07/14/201736Transcribed: 07/14/201736 MR brain wo/w con from 07/14/20 HISTORY: 39 years-old Female WEakness/numbness inleg eval for MS acute headache with lightheadedness and weight loss. COMPARISON: MRI lumbar spine of same day TECHNIQUE: Multiplanar multisequence MRI of the brain was obtained both with and without the use of 5.2 mL Gadavist FINDINGS: Metropolitan Editor localizer images demonstrate no gross extracranial abnormality. No restricted diffusion to suggest acute or subacute infarct. No acute intracranial hemorrhage, midline shift, abnormal extra-axial collection, hydrocephalus or intracranial mass. Brain parenchyma is unremarkable. Punctate T2/FLAIR hyperintense focus in the right temporal lobe on image 114 of the MS axial FLAIR images is likely no clinical significance. There is no abnormal intra-axial or extra-axial enhancement. Cerebral venous sinuses and major arterial flow voids appear patent. Mastoid air cells are clear. Mild polypoid mucosal thickening of the right maxillary sinus with mild mucosal thickening also noted within the air cells. Skull, orbits and soft tissues are unremarkable. IMPRESSION: 1. No acute intracranial abnormality. 2. No MRI evidence to suggest a demyelinating process. 3. No abnormal enhancement. 4. Mild paranasal sinus disease. ACT 112: Negative or not required by law. The above report was generated using voice recognition software. It may contain grammatical, syntax or spelling errors. Electronically signed by: Orestes Barnard M.D. 07/14/2020 6:13 PM Dictated: 07/14/20 180Transcribed: 07/14/201805 PG Care Time/CCT Total # of Minutes Spent Total Time Spent with Patient: Total time spent is greater than 50% in coordination of care (as documented) at patient's floor/unit and/or counseling patient: Coding Level of Care Code 70239 OBS Care - Level 2 Diagnoses Lumbar radiculopathy M54.16
[2020-07-20] MEDS ORDERED: HYDROmorphone INJ 0.5 MG/0.5 ML SYR IV PRN (00:25)
[2020-07-20] MEDS ORDERED: ONDANSETRON INJ 2 MG/ML 2 ML VIAL IV PRN (00:25)
[2020-07-20] MEDS ORDERED: POTASSIUM CHLORIDE CRTAB 20 MEQ TABCR PO STA (00:25)
[2020-07-20 00:37] LABS: Magnesium 2.6 mg/dl (1.8-2.4)
[2020-07-20] MEDS: ACETAMINOPHEN 500 MG TAB PO SCH ×3 (01:25→16:48)
[2020-07-20] MEDS: MoRPHine SULFATE 2 MG/ML CARP IV PRN ×3 (01:32→12:12)
[2020-07-20] MEDS: KETOROLAC TROMETHAMINE 15 MG/ML VIAL IV PRN ×3 (03:23→22:46)
[2020-07-20] MEDS: oxyCODONE HCL IR 5 MG TAB (IMMEDIATE RELEASE) PO PRN ×4 (03:35→20:14)
[2020-07-20 06:26] LABS: Basophils # (auto) 0.01 K/uL (0-0.2); Basophils % (auto) 0.1 %; Hematocrit (blood only) 40.5 % (37-47); Hemoglobin 14.4 g/dL (12.0-16.0); Immature Granulocytes # (auto) 0.02 K/uL (0.00-0.02); Immature Granulocytes % (auto) 0.2 %; Lymphocytes # (auto) 1.66 K/uL (1.2-3.4); Lymphocytes % (auto) 14.3 %; Mean Corpuscular Hemoglobin 30.6 pg (25-34); Mean Corpuscular Hgb Conc 35.6 g/dL (32-36); Mean Platelet Volume 8.6 fL (7.4-10.4); Monocytes # (auto) 0.17 K/uL (0.11-0.59); Monocytes % (auto) 1.5 %; Neutrophils # (auto) 9.78 K/uL (1.4-6.5); Neutrophils % (auto) 83.9 %; Platelet Count 368 K/uL (130-400); RDW Coefficient of Variation 11.9 % (11.5-14.5); RDW Standard Deviation 37.3 fL (36.4-46.3); Red Blood Count 4.71 M/uL (4.2-5.4); White Blood Count 11.64 K/uL (4.8-10.8)
[2020-07-20 06:38] LABS: INR 1.1 (0.9-1.1); Prothrombin Time 11.1 Seconds (9.0-12.0)
[2020-07-20 07:05] LABS: BUN Creatinine Ratio 14.9 (10-20); Calcium 8.8 mg/dl (8.5-10.1); Creatinine Clr Calc Pharmacy 68.6 ml/min; Est GFR (Non-African American) 86.3; Potassium 4.1 mmol/L (3.5-5.1)
--- NOTE | 2020-07-20 08:12 | Hospitalist Progress Note ---
Date of Service July 20, 2020 Assessment & Plan (1) Lumbar radiculopathy: Lumbar pain with radiculopathy mri 07/14/20 IMPRESSION: 1. At L4-L5, discogenic degeneration and spondylitic spurring is noted along with a right paracentral/right lateral recess disc protrusion which abuts and posteriorly displaces the right L5 nerve root resulting in moderate right lateral recess narrowing. 2. Mild discogenic degeneration at L3-L4 and L5-S1 as above. 3. No significant central canal or foraminal narrowing -Pain control with scheduled Tylenol, Lidoderm, decadron given in the ER, Oxycodone, Morphine PRN -Ortho consultation appreciated, no surgical intervention given given bilateral symptoms will have neurology consult Code - Full Dispo - Obs to medical Admission and Anticipated Discharge Date Admission Date: July 19, 2020 Subjective Patient continues to have persistent complaints of discomfort in bilateral hips anterior thighs and then running down the inner part of her legs bilaterally. She occasionally has this associated with paresthesias to her patella and prepatellar area. Patient states that this can be associated with tremor and collapse at home. She states this is not necessarily positional but does occur more when she is bearing weight and standing. She was seen in consultation by orthopedic surgery for possible radicular symptoms but they did not feel this would be amenable to surgical correction and are not planning any surgery at this time. Patient denies any particularly inciting event this is been present for some time and worsening over the last few months to the point where she is falling and sustaining bruises to her lower legs Review of Systems Review of Systems: Mild distress and fatigue no headache, blurry or double vision no speech or swallowing issues no chest pain, pressure or palpitations no shortness of breath, cough or wheezes no abdominal pain, nausea or vomiting, diarrhea or constipation no dysuria, hematuria or frequency pt has description of b/l hip aching, tremulous muscles and weakness to hip gi rdle with falling bruising to le focal of weakness or numbness to bilateral lower legs Physical Exam Physical Exam: The patient appeared well nourished and normally developed. Vital signs as documented. Head exam is normocephalic atraumatic no scleral icterus Neck is without JVD, thyromegaly, or carotid bruits. Lungs are clear to auscultation, no focal loss of breath sounds Cardiac exam, Rhythm is regular.. No murmurs, rubs or gallops. Abdominal exam reveals normal bowel sounds, soft non tender, no masses Extremities are nonedematous and both pedal pulses are present there are bruises to anterior shins L>R, she has grossly intact sensation and no clonus to reflex testing Neurologic exam is alert and oriented, has some decrease in hip girdle flexion strength Skin is with bruises Results & Data Results & Data ([facility]) Vital Signs (Past 12 Hours) Vital Signs Temp Pulse Pulse Pulse Resp BP BP 07/20/20 00:30 98.2 F 80 80 18 116/79 07/19/20 23:35 63 14 115/78 07/19/20 21:50 66 16 07/19/20 21:00 75 15 07/19/20 20:17 73 22 BP Pulse Ox 07/20/20 00:30 97 07/19/20 23:35 98 07/19/20 21:50 100 07/19/20 21:00 128/74 96 07/19/20 20:17 114/63 100 PG Care Time/CCT Total # of Minutes Spent Total Time Spent with Patient: Total time spent is greater than 50% in coordination of care (as documented) at patient's floor/unit and/or counseling patient: Coding Level of Care Code 08908 Subseq Hosp Care Lvl 2 Diagnoses Lumbar radiculopathy M54.16
[2020-07-20] MEDS: DOCUSATE SODIUM 100 MG CAP PO PRN ×2 (08:25→20:15)
--- NOTE | 2020-07-20 12:16 | Orthopedic Consultation ---
Date of Consultation July 20, 2020 Assessment & Plan (1) Lumbar radiculopathy: At this time I have reviewed her MRI on several occasions. I certainly appreciate a small fragment of disc material on the right with some caudal migration that could be affecting the L5 nerve root. However this does not coincide with the symptom complex she presents. I cannot explain her bilateral leg pain particularly left being worse than the right. She may require consultation with interventional pain management for further neurologic work-up. At this point I would not recommend surgical intervention with her current presentation and symptom complex. Present on Admission?: Yes History of Present Illness Reason for Consultation: Back and bilateral leg pain Attending Physician: Duane Avalos MD History of Present Illness This is a 39-year-old female presents to emergency room with severe back and leg pain. MRI was obtained earlier that demonstrates evidence of small disc herniation L5-S1 on the right. Today she complains mostly of left-sided radiculopathy rating into the left great toe. She also notes aching and pain in the bilateral groin region descending down the anterior thighs. It is exacerbated with activity. She denies any trauma fall or event. She is very anxious. She apparently has a history of a significant shoulder injury on the left and does not want to develop further nerve damage involving the lower extremities. Allergies Allergy/AdvReac Type Severity Reaction Status Date / Time trazodone Allergy Intermediate Hypotension Verified 07/19/20 21:31 amoxicillin Allergy Unknown Unknown Verified 07/19/20 21:31 Penicillins Allergy Unknown Nausea Verified 07/19/20 21:31 ERYTHROMYCIN Allergy Unknown Unknown Uncoded 07/19/20 21:31 Home Medications Medication Instructions Recorded Confirmed Type norgestimate-ethinyl estradiol 1 tab PO DAILY 07/19/20 07/19/20 History [Tri-Sprintec (28)] oxycodone 5 mg PO Q6H PRN 07/19/20 07/19/20 History prednisone 10 mg PO DIRECTED 07/19/20 07/19/20 History Patient History Medical History (Updated 07/20/20 @ 02:08 by Adelso John MD) No significant active problems Surgical History (Updated 07/20/20 @ 03:17 by Claudia Schofield DO) History of shoulder surgery Family History (Updated 07/20/20 @ 03:17 by Claudia Schofield DO) Other Heart disease Social History Smoking Status: Never smoker Preferred Language: Upper Sorbian Communication Ability: Effective Presiding Judge Required: No Beliefs That Will Affect Care: None Current Living Situation: Significant Other Other Information That Helps Us Care for You: No Feels Safe at Home: Yes Safety Concerns: Feels Safe At This Time Assistive Devices: Walker Assistive Devices Comment: Walker; only with current situation Physical Exam Physical Exam: On exam she is able to sit up in bed. I am unable to elicit gross tension signs. She has breakaway weakness to dorsiflexion plantarflexion on the left foot compared to 5/5 on the right foot. Results & Data ([facility]) Vital Signs (Past 12 Hours) Vital Signs Temp Pulse Pulse Resp BP Pulse Ox 07/20/20 08:13 36.4 C L 73 16 109/64 98 07/20/20 00:30 36.8 C 80 80 18 116/79 97
[2020-07-20] MEDS: LIDOCAINE 5% 1 PATCH TD SCH (13:25)
[2020-07-20] MEDS: MoRPHine SULFATE 4 MG/ML 1 ML CARP\\VIAL IV PRN ×2 (16:48→21:41)
[2020-07-20 17:24] LABS: Thyroid Stimulating Hormone 0.469 uIu/ml (0.300-4.500)
[2020-07-20 17:43] LABS: Lyme Ab IgG w/WB Rflx Negative (Negative); Lyme Ab IgM w/WB Rflx Negative (Negative)
[2020-07-20 19:25] LABS: Folate (Folic Acid) 8.5 ng/ml (>5.38)
[2020-07-20] MEDS ORDERED: POLYETHYLENE (MIRALAX) 17 GM PACK PO PRN (20:43)
[2020-07-20] MEDS ORDERED: MELATONIN 3 MG TAB PO PRN (20:43)
[2020-07-21] MEDS: ACETAMINOPHEN 500 MG TAB PO SCH ×3 (01:14→16:05)
[2020-07-21] MEDS: oxyCODONE HCL IR 5 MG TAB (IMMEDIATE RELEASE) PO PRN (04:15)
[2020-07-21] MEDS: MoRPHine SULFATE 4 MG/ML 1 ML CARP\\VIAL IV PRN (08:17)
[2020-07-21] MEDS: LIDOCAINE 5% 1 PATCH TD SCH (08:18)
[2020-07-21] MEDS: DOCUSATE SODIUM 100 MG CAP PO PRN (08:27)
--- NOTE | 2020-07-21 09:27 | Neurology Consultation ---
Date of Consultation July 21, 2020 Assessment & Plan (1) Lumbar spine pain: (2) Thoracic spine pain: (3) Gait disturbance: (4) Lumbar radiculopathy: (5) Left arm weakness: this patient is somewhat complicated neurologically. She has progressive pain and weakness and gait disturbance particularly over the last 2 months. She has been falling over the last week due to weakness in her proximal legs bilaterally. Her pain is centered around her mid to upper thoracic spine and lower lumbar spine. She does have some history of radicular symptomatology particularly in the left leg recently (but the right lower extremity in the past). MRI of the lumbar spine shows L4-5 disc to the right which may explain her right radicular symptoms in the past. I see nothing on the MRI of the lumbar spine which would explain her bilateral lower extremity symptoms. She does have a dysesthesias pattern in the inner aspect of the left lower leg possibly consistent with L4 versus femoral sensory. There is no MRI finding in the mid lumbar spine otherwise. She does not have a significant spinal stenosis. On exam reflexes are normal to brisk in the lower extremities and with her thoracic spine pain I cannot exclude a thoracic myelopathy creating lower extremity weakness. There are no other upper motor neuron signs in the legs. She has a left shoulder fusion in the past creating limitations in the left upper extremity. There are no lower motor neuron signs in the arms. The patient does not have a pattern that fits myopathy or polyneuropathy and CK and sed rate were quite normal excluding active inflammatory neuromuscular disease. Recommendations: 1. MRI of the thoracic spine . Consider MRI of the cervical spine as well. 2. EMG nerve conduction studies as an outpatient. I would like to study all 4 limbs. 3. pain management as you are doing. 4. Physical and occupational therapy. I will make additional recommendations after the above tests and would be happy to follow her as an outpatient. Overall, I spent a total of 80 minutes with this case including review of records, review of MRI films, direct evaluation the patient bedside, and discussion of the case at the patient at bedside and Dr. Avalos, including differential diagnosis and treatment options. History of Present Illness Reason for Consultation: patient is a 39-year-old, who I was asked to see the request of Dr. Avalos, for neurologic consultation regarding low back pain and lower extremity weakness. Requesting Physician: Dr. Avalos Attending Physician: Duane Avalos MD History of Present Illness This patient started getting issues with her left shoulder in her 20s and getting major shoulder surgery in her early 30s. Unfortunately due to complications she had to have a fused left shoulder. Over the last 5 years she has had intermittent low back pain increasing with standing ( such as at her job). intermittently, over the years, she would have pain radiating down the posterior aspect of her right lower extremity to her foot. This may last a day or so and then resolved. There may be some numbness in her feet or legs as if they were "falling asleep" this to would come and go. physical therapy was of limited help. The patient tells me that she was doing fairly well, all things considered, until beginning of this year. 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 She will get a "hot iron" sensation between her shoulder blades that could radiate in the thoracic spine. Using her arms, such as doing dishes, would exacerbate this. She may have some cervical spine pain at times but this is minimal compared to the thoracic and lumbar spine pain. Over the last week she has been falling. She feels shooting pains and dysesthesias down the inside of the legs left greater than right side ( from groin to foot) and standing and trying to walk creates some electric shock feeling in her proximal anterior legs and low back. He On July 14, an MRI of the lumbar spine showed an L4-5 disc to the right possibly impinging the right L5 nerve root with some lesser disc bulges above and below. There really is no significant spinal stenosis and I reviewed these films. An MRI of the brain the same date was unremarkable. I reviewed these films. Patient was admitted July 19. Blood pressure was 129/74, pulse 86 and regular, respiratory rate 16, temperature 36.7, and O2 saturation 100 percent. CBC and Chem profile has been unremarkable this hospitalization. Sed rate was 2 and CK was 30. Urinalysis, B12, folate, TSH, and Lyme antibody titers were all unremarkable. The patient denies incontinence of urine, vision changes, swallowing issues, or significant fatigue. She has no speech or mentation problems. She does not have other joint pain or rashes. JAS is pending. Allergies Allergy/AdvReac Type Severity Reaction Status Date / Time trazodone Allergy Intermediate Hypotension Verified 07/19/20 21:31 amoxicillin Allergy Unknown Unknown Verified 07/19/20 21:31 Penicillins Allergy Unknown Nausea Verified 07/19/20 21:31 ERYTHROMYCIN Allergy Unknown Unknown Uncoded 07/19/20 21:31 apple AdvReac Uncoded 07/20/20 14:16 Home Medications Medication Instructions Recorded Confirmed Type norgestimate-ethinyl estradiol 1 tab PO DAILY 07/19/20 07/19/20 History [Tri-Sprintec (28)] oxycodone 5 mg PO Q6H PRN 07/19/20 07/19/20 History prednisone 10 mg PO DIRECTED 07/19/20 07/19/20 History Patient History Medical History (Updated 07/21/20 @ 09:52 by Lauro Spencer MD) No significant active problems Surgical History (Updated 07/21/20 @ 09:40 by Lauro Spencer MD) History of shoulder surgery S/P appendectomy S/P tonsillectomy Family History Mother Stroke Hypertension Family/Other Stroke Dyslipidemia Other Heart disease Social History Smoking Status: Former smoker Smoking End Date: 2014; Number of Years Since Quit: 5; Hx Alcohol Use: No ( quit all alcohol use in 2014. 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 Other Information That Helps Us Care for You: No Feels Safe at Home: Yes Safety Concerns: Feels Safe At This Time Assistive Devices: Walker Assistive Devices Comment: Walker; only with current situation Review of Systems Constitutional: + weakness; no fever and no fatigue Eyes: no diplopia, no eye pain and no worsening vision Ear, Nose, Mouth, Throat: no ear pain, no tinnitus, no hearing loss, no dizziness, no hoarseness and no dysphagia Respiratory: no cough and no dyspnea Cardiovascular: no chest pain, no palpitations and no lightheadedness Gastrointestinal: no abdominal pain, no nausea and no vomiting Genitourinary: no dysuria, no urinary frequency and no urinary incontinence Musculoskeletal: + back pain, + neck pain and + radicular pain; no joint pain and no myalgia Integumentary: no rash and no lesions Neurologic: + gait abnormality, + localized weakness and + numbness; no generalized weakness, no tingling, no tremor(s), no abnormal movements, no headache(s), no abnormal speech, no confusion and no memory loss Psychiatric: no depression, no irritability, no anxiety, no difficulty concentrating, no confusion and no hallucinations Endocrine: no fatigue and no flushing Hematologic / Lymphatic: no easy bleeding and no easy bruising Allergy / Immunological: no urticaria and no problem reported Exam (Neuro) Physical Exam: The patient is right-handed. The patient is awake, alert, and attentive. Speech is normal without any aphasia or dysarthria. She can name objects, repeat phrases, and has normal spontaneous speech. Mentation and thought processes are intact, with orientation to person, place and time, and normal fund of knowledge. Attention and concentration are normal. Mood and affect are normal and appropriate. General appearance and grooming are normal. Short and long-term memory are intact. The discs are sharp with positive venous pulsations bilaterally. There are no exudates, hemorrhages, or blood vessel changes seen. Pupils are 4 mm bilaterally and reactive to light. Extraocular eye muscles are intact without nystagmus. Visual acuity and visual fisher seem normal grossly to confrontation. There are no deficits to sensation in the face in all 3 distributions of the fifth cranial nerve bilaterally. Corneal reflexes are positive bilaterally. F acial strength and symmetry was normal bilaterally. Hearing seems normal to whisper and finger rub bilaterally. Palate moves well without asymmetry. There is normal sternocleidomastoid and trapezius (shoulder shrug) strength bilaterally. Tongue is midline with good strength bilaterally. Neck has a full range of motion without discomfort. There are no cervical bruits bilaterally. There are no cranial or ocular bruits. Heart is without murmur. There is a regular rhythm and rate. Cervical, thoracic, and lumbar spine are nontender to palpation, however, there is tenderness in the left greater than right SI joint area and the thoracic paraspinal muscles bilaterally. Gait is narrow based,, very slow and cautious needing either a walker or the assistance of 1 or 2 people. Stance was reasonable feet together and eyes open. Sitting up in bed was reasonable as well. With outstretched arms there is no drift. She did have a left finger escape sign. There are no resting, postural, or action tremors. There is no ataxia with finger to nose testing. There is good facility in the hands. No other abnormal involuntary movements are noted. Motor strength is 5/5 diffusely in the right upper extremity including deltoids, biceps, triceps, brachioradialis, wrist flexors and extensors, plunket nurse, and intrinsic hand muscles. motor strength in the left upper extremity is 4+/ 5 but I was concerned about some giveaway weakness secondary to pain and not any clear pathological weakness. Motor strength is 5/5 diffusely in the right lower extremity including hip flexors, quadriceps, hamstrings, gastrocnemius, tibialis anterior, tibialis posterior, and Peroneii muscles. motor strength in the left lower extremity was 4/5 diffusely although, again, I believe much of this was giveaway weakness and pathologic weakness. Toe extensors are normal and there is good bulk in the extensor digitorum brevis muscles bilaterally. The limbs have good tone without rigidity or spasticity. There is no atrophy noted in the muscles. Muscle bulk is normal, there is no tenderness to palpation, no myotonia to percussion, and no fasciculations seen. Sensory examination is intact to touch and pin throughout all 4 limbs diffusely , except for some decreased sensation to pin in the medial thigh and medial lower leg on the left compared to the right. Reflexes are 2/4 in the biceps, triceps, brachioradialis,and Achilles tendons bilaterally. quadriceps reflexes were 3/4 bilaterally. There is no clonus bilaterally. Toes are downgoing with plantar stimulation bilaterally. Peripheral pulses are present and of normal quality distally in all 4 limbs. There is no peripheral edema noted in the limbs. Results & Data ([facility]) Vital Signs (Past 12 Hours) Vital Signs Temp Pulse Resp BP Pulse Ox 07/21/20 07:50 36.8 C 77 16 100/65 99 07/20/20 22:41 36.9 C 62 16 96/59 L 98 PG Care Time/CCT Total # of Minutes Spent Total Time Spent with Patient: Total time spent is greater than 50% in coordinat ion of care (as documented) at patient's floor/unit and/or counseling patient: Coding Level of Care Code 25957 Office/OBS Consult Lvl 5 Diagnoses Lumbar spine pain M54.5 Thoracic spine pain M54.6 Gait disturbance R26.9 Lumbar radiculopathy M54.16 Left arm weakness R29.898
[2020-07-21] MEDS ORDERED: predniSONE 20 MG TAB PO STA (10:00)
[2020-07-21] MEDS ORDERED: oxyCODONE HCL IR 5 MG TAB (IMMEDIATE RELEASE) PO PRN (13:31)
--- NOTE | 2020-07-21 14:23 | Magnetic Resonance Report ---
MR thoracic spine wo con CLINICAL HISTORY: leg weakness PRIOR STUDIES: None TECHNIQUE: MR scanning of the thoracic spine was performed using multiple pulse sequences. No gadoli nium was administered. FINDINGS: There are no suspicious areas of marrow replacement. No spinal cord lesions are visualized. No disc herniations are evident. There is no spinal stenosis. No paraspinal masses are visualized. IMPRESSION: Normal MRI of the thoracic spine. ACT 112: Negative or not required by law. Electronically signed by: Ryan Marquez M.D. 07/21/2020 2:22 PM
--- NOTE | 2020-07-21 14:33 | Magnetic Resonance Report ---
MRI OF THE CERVICAL SPINE WITHOUT IV CONTRAST CLINICAL HISTORY: Increasing low back pain. Difficulty with ambulation. COMPARISON STUDY: No priors. TECHNIQUE: MRI of the cervical spine is performed utilizing various T1 and T2-weighted sequences in t he axial and sagittal planes. IV contrast was not administered for this examination. FINDINGS: Cervical spine: Vertebral body height and alignment are maintained throughout the cervical spine. No rmal marrow signal intensity is preserved throughout the visualized bony structures. The atlantodenta l articulation is maintained. The spinous processes are intact. No destructive bony lesion is seen. Intervertebral discs: There is mild degenerative disc desiccation. The disc spaces are maintained. Spinal cord: The cervical spinal cord is normal in morphology and signal intensity. C2-C3: Unremarkable. C3-C4: Unremarkable. C4-C5: Mild facet arthropathy is of no consequence. The central canal and neural foramina are patent. C5-C6: Mild facet arthropathy is of no consequence. The central canal and neural foramina are patent. C6-C7: Unremarkable. C7-T1: Unremarkable. Soft tissues: The prevertebral and paraspinous soft tissues are within normal limits. Brain parenchyma: The visualized brain parenchyma throughout the skull base is normal in appearance. Mild mucosal thickening is noted within the right maxillary antrum. IMPRESSION: 1. There is no disc herniation, central canal stenosis, or neural foraminal narrowing seen throughout the cervical spine. 2. The cervical spinal cord is normal in morphology and signal intensity. Dictated: 07/21/2020 1:43 PM Transcribed: 07/21/2020 2:25 PM Page [id number] [facility] Electronically signed by: Grey Aleman M.D. 07/21/2020 2:32 PM
[2020-07-21] MEDS: KETOROLAC TROMETHAMINE 15 MG/ML VIAL IV PRN (14:43)
--- NOTE | 2020-07-21 14:44 | Discharge Summary ---
Date of Service July 21, 2020 Admission HPI Per Admitting Provider 39yo female with no significant past medical history presenting with severe back pain, numbness and tingling on anterior thighs and down medial legs bilaterally. Difficulty with ambulation. Hip pain as well as low back pain and burning. No urinary or bowel complaints. No fever No trauma Seen in the ER on 07/14/20 - had MR which showed L4-L5 disc degeneration and spondylitic spurring with displacement of L5 nerve root. She was started on Oxycodone and Prednisone with mild improvement initially, however, worsening symptoms over the last day. Principal Diagnosis myopathy NOS Discharge Exam The patient appeared stated age Vital signs as documented. Lungs are clear Cardiac exam, Rhythm is regular Abdominal exam reveals normal bowel sounds, soft Extremities are nonedematous and both pedal pulses are normal. Neurologic exam is with gait instability, and some bruises on lower extremities Skin is with bruise b/l lower shins Discharge Data Allergies Allergy/AdvReac Type Severity Reaction Status Date / Time trazodone Allergy Intermediate Hypotension Verified 07/19/20 21:31 amoxicillin Allergy Unknown Unknown Verified 07/19/20 21:31 Penicillins Allergy Unknown Nausea Verified 07/19/20 21:31 ERYTHROMYCIN Allergy Unknown Unknown Uncoded 07/19/20 21:31 apple AdvReac Uncoded 07/20/20 14:16 Consultations 07/19/20 22:06 ED Decision to Admit Stat 07/20/20 00:25 Consult Orthopedic Surgery Routine 07/21/20 07:23 Consult Neurology Routine Ordered Studies 07/21/20 09:59 MR cervical spine wo con Routine MR thoracic spine wo con Routine Hospital Course (1) Lumbar radiculopathy: Lumbar pain with radiculopathy mri 07/14/20 IMPRESSION: 1. At L4-L5, discogenic degeneration and spondylitic spurring is noted along with a right paracentral/right lateral recess disc protrusion which abuts and posteriorly displaces the right L5 nerve root resulting in moderate right lateral recess narrowing. 2. Mild discogenic degeneration at L3-L4 and L5-S1 as above. 3. No significant central canal or foraminal narrowing -Pain control with scheduled Tylenol, prednisone taper, Oxycodone, consider otc lidoderm -Ortho consultation appreciated, no surgical intervention given given bilateral symptoms did have neurology consult, will recommend emg follow up Code - Full Total Time Total Time Spent Total Time Spent (In Minutes): discharge took greater than 30 minutes Discharge Plan Discharge Items Patient Disposition: Home - Self-Care Reason For Visit: BACK PAIN, RADICULOPATHY Discharge Diagnosis: myopathy Activity: Per Instructions section Activity Comment: please use walker Non-emergency contact: Primary Care Provider and Neurologist Call non-emergency contact if: you have any medication questions Follow-up/Referrals: Lauro Spencer MD [Physician] - PCP,NO [Primary Care Provider] - Diet: Regular Addtl Attending Provider Instructions: please use walker for support while we are working up your muscular weakness finish all your medicines, use your pain medicines cautiously. Pending Studies at Discharge: No Stand-Alone Forms: My [employer], Smoking Cessation Medications and DC Order Prescriptions: New prednisone 10 mg tablet 10 mg PO UD Qty: 20 RF: 0 acetaminophen 500 mg Tablet 1,000 mg PO Q8H Qty: 90 RF: 0 Continued norgestimate-ethinyl estradiol [Tri-Sprintec (28)] 0.18/0.215/0.25 mg-35 mcg (28) tablet 1 tab PO DAILY RF: 0 Changed oxycodone 5 mg tablet 10 mg PO Q6H PRN (Reason: Pain) Qty: 20 RF: 0 Admission Data Admit Date/Time: 07/19/20 22:21 Attending Provider: Duane Avalos Admit Provider: Claudia Schofield Primary Care Provider: PCP,NO Other Providers: Claudia Schofield ; Markus Bains ; Lauro Spencer Coding Level of Care Code D/C Day Management >30 mins Diagnoses Lumbar radiculopathy M54.16
[2020-07-24 11:28] LABS: Anti Nuclear Antibody Screen NEGATIVE (NEGATIVE)
--- NOTE | 2020-07-31 17:25 | Discharge Summary ---
Date of Service July 21, 2020 Principal Diagnosis myopathy nos Discharge Exam The patient appeared well Vital signs as documented. Lungs are clear to auscultation and appear unlabored Cardiac exam, Rhythm is regular.. No murmurs, rubs or gallops. Abdominal exam reveals normal bowel sounds, soft non tender, no masses Extremities are nonedematous and both pedal pulses are normal. Neurologic exam is alert and oriented intact distal sensation but weakness of her flexor muscles of her hip Skin is with some bruising to her anterior tibia bilaterally Psychologically is without concerns for anxiety or depression. Discharge Data Allergies Allergy/AdvReac Type Severity Reaction Status Date / Time trazodone Allergy Intermediate Hypotension Verified 07/19/20 21:31 amoxicillin Allergy Unknown Unknown Verified 07/19/20 21:31 Penicillins Allergy Unknown Nausea Verified 07/19/20 21:31 apple Allergy Verified 07/21/20 15:37 ERYTHROMYCIN Allergy Unknown Unknown Uncoded 07/19/20 21:31 Consultations 07/19/20 22:06 ED Decision to Admit Stat 07/20/20 00:25 Consult Orthopedic Surgery Routine 07/21/20 07:23 Consult Neurology Routine Ordered Studies 07/21/20 09:59 MR cervical spine wo con Routine MR thoracic spine wo con Routine Hospital Course (1) Lumbar radiculopathy: Lumbar pain with radiculopathy mri 07/14/20 IMPRESSION: 1. At L4-L5, discogenic degeneration and spondylitic spurring is noted along with a right paracentral/right lateral recess disc protrusion which abuts and posteriorly displaces the right L5 nerve root resulting in moderate right lateral recess narrowing. 2. Mild discogenic degeneration at L3-L4 and L5-S1 as above. 3. No significant central canal or foraminal narrowing -Pain control with scheduled Tylenol, prednisone taper, Oxycodone, consider otc lidoderm -Ortho consultation appreciated, no surgical intervention given given bilateral symptoms patient was seen by neurology. MRI was performed of her cervical and thoracic spine without incident however explanation of etiology. CK and sed rate were also unremarkable for myopathy or myositis. Patient was discharged home with outpatient neurology follow-up and a prednisone tapering dose Code - Full Total Time Total Time Spent Total Time Spent (In Minutes): Discharge 30 including personal discussion with neurology on 2 occasions Discharge Plan Discharge Items Patient Disposition: Home - Self-Care Reason For Visit: BACK PAIN, RADICULOPATHY Discharge Diagnosis: myopathy Activity: Per Instructions section Activity Comment: please use walker Non-emergency contact: Primary Care Provider and Neurologist Call non-emergency contact if: you have any medication questions Follow-up/Referrals: Lauro Spencer MD [Physician] - 08/16/20 9:00 am (Appointment will be with Dr. Ida Reece) PCP,NO [Primary Care Provider] - Diet: Regular Addtl Attending Provider Instructions: please use walker for support while we are working up your muscular weakness finish all your medicines, use your pain medicines cautiously. consider using over the counter lidocaine patch, on our back MRI of lumbar spine and cervical spine are negative Pending Studies at Discharge: No Stand-Alone Forms: My light, Work/School Release (Inpt), Smoking Cessation Medications and DC Order Prescriptions: New acetaminophen 500 mg Tablet 1,000 mg PO Q8H Qty: 90 RF: 0 prednisone 10 mg tablet 10 mg PO UD Qty: 20 RF: 0 Continued norgestimate-ethinyl estradiol [Tri-Sprintec (28)] 0.18/0.215/0.25 mg-35 mcg (28) tablet 1 tab PO DAILY RF: 0 Changed oxycodone 5 mg tablet 10 mg PO Q6H PRN (Reason: Pain) Qty: 20 RF: 0 Discharge Orders: Discharge Order (Routine); Ordered 07/21/20 Ordered By: Duane Smiley/Other Patient Handouts: Pain Management Opioids Admission Data Admit Date/Time: 07/19/20 22:21 Attending Provider: Duane Avalos Admit Provider: Claudia Schofield Primary Care Provider: PCP,NO Other Providers: Claudia Schofield ; Markus Bains ; Lauro Spencer Other Interventions: Discharge Summary Assessment (RN) Last Done: 07/21/20 17:47 Coding Level of Care Code D/C Day Management >30 mins Diagnoses Lumbar radiculopathy M54.16
== END 2020-07-21 18:50 | disposition home or self-care (01) ==
LOC: 3W 18:37 → ED 18:37 → SUATTDRO 22:21 → 3W 23:35